=== PATIENT | male | born 1990 | race Caucasian/White ===

== ENCOUNTER 2017-01-30 11:24 | Emergency (ER) | payer SELFPAY ==
--- NOTE | 2017-02-07 21:25 | ER ---
ADMIT: 01/30/2017 RM/LOC: ER [facility] MR#: [id number] [address] [facility] [address] [place], [place] [address] EMILY CHAVIS [address] [place] [id number] Emergency Room Report SEX: M AGE: 26 : 1990 DATE: 01/30/2017 ADDENDUM: This patient comes to the ER because he is concerned that he might have an STD. He states he had intercourse without a condom 2 weeks ago and since then has pain and itching around his urethra, and he has noticed some fluids. He is concerned that he has a fungus in his blood and also is concerned he might have an HIV exposure. On physical exam, the patient has a hypospadias, and it does appear to have some urethral drainage. He is an uncircumcised male. At first, the patient never mentioned his unprotected intercourse and denied any dysuria or drainage. Once I talked to him again, he did admit to having unprotected sex and then his fear of having HIV. I did give him 1 g of Rocephin and 1 g of Zithromax in the emergency room. He is to follow up with Dr. Yusuf next week if he is not feeling better and especially if he is concerned about getting an HIV screen. Please see my T-sheet. ANNIE Argueta / iGovanny Cummings MD / festus JOB #: [id number] CC: Giovanny Cummings MD, Attending Physician Shai Yusuf MD, Family Physician
== END 2017-01-30 13:28 | disposition home or self-care (01) ==
LOC: ER 11:24
DX: N34.2 Other urethritis (principal); F17.210 Nicotine dependence, cigarettes, uncomplicated

== ENCOUNTER 2017-01-31 12:10 | Emergency (ER) | payer SELFPAY ==
--- NOTE | 2017-02-07 21:25 | ER ---
ADMIT: 01/31/2017 RM/LOC: ER [facility] MR#: [id number] [id number] [place], [place] [address] EMILY CHAVIS [address] [place] [id number] Emergency Room Report SEX: M AGE: 26 : 1990 DATE: 01/31/2017 ADDENDUM: CHIEF COMPLAINT: Penile pain. HISTORY OF PRESENT ILLNESS: This is a 26-year-old, male, who presents to the ER for evaluation of some penile pain for the past two weeks. The patient states he has been experiencing pain in his penis as well as some itchiness about his toes bilaterally. The patient was seen in the ER yesterday, diagnosed with urethritis and treated with a gram of azithromycin, 500 mg of Rocephin IM. He returns today saying the pain continues. He voices concerns about a blood infection stating that the fungus on his toes and feet has seeped through his pores and caused infection of his blood. He repeatedly states the pain in his penis is very intense. He would like blood work to see if there is an infection in his blood. The patient denies any known contact with any sexually transmitted diseases. Denies any unprotected sex. He states he has discharge from his penis and that his toes "look very bad." COURSE IN THE EMERGENCY ROOM: The patient was seen and examined. I did complete male exam. No tenderness about the penile shaft or meatus. No testicular pain. No obvious discharge on exam. Also, did examine his feet. No evidence of any excoriation or candidal infection. IMPRESSION: 1. Urethritis. 2. Penile pain. DISPOSITION: I did discuss that I had no concerns on exam today as I was unable to appreciate any sign of infection with the or distal leg exam. He repeatedly requested blood work, which I denied and stated he needs to follow up with an PCP if he would like to have blood work completed. Appearing nontoxic and without a source, there was a very low chance of having a disseminated blood infection. I encouraged him to use hydrocortisone on his feet as neede for the itching. Asked to use Tylenol or ibuprofen as needed for pain in his penis. He is to follow up if his pain persists with a primary care provider. The patient was discharged in stable condition. ANNIE Diamond / Giovanny Cummings MD / festus JOB #: [id number] CC: Giovanny Cummings MD, Attending Physician
== END 2017-01-31 14:00 | disposition home or self-care (01) ==
LOC: ER 12:10
DX: N34.2 Other urethritis (principal); F17.210 Nicotine dependence, cigarettes, uncomplicated

== ENCOUNTER 2017-04-03 03:51 | Emergency (ER) | payer SELFPAY ==
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
== END 2017-04-03 04:50 ==
LOC: ER 03:51
DX: S00.83XA Contusion of other part of head, initial encounter (principal); F10.129 Alcohol abuse with intoxication, unspecified; J01.00 Acute maxillary sinusitis, unspecified; Y04.2XXA Assault by strike against or bumped into by another person, initial encounter; Y92.29 Other specified public building as the place of occurrence of the external cause